=== PATIENT | female | born 1955 | race Caucasian/White ===

== ENCOUNTER → 2016-06-12 | Outpatient (CLI) | payer BC ==
[~2016-06-12] MED LIST: ADVIL MIGRAINE200 MG PO; DOXYCYCLINE 10100 MG PO; MUCINEX DM 30 M1 TE1 PO
== END ==
LOC: COL.VAS 12:21
DX: Z09 Encounter for follow-up examination after completed treatment for conditions other than malignant neoplasm (principal)

== ENCOUNTER → 2017-06-16 | Outpatient (CLI) | payer BC | LOC: MC.RAD 14:19 | DX: Z12.31 Encounter for screening mammogram for malignant neoplasm of breast (principal) ==

== ENCOUNTER → 2019-08-02 | Outpatient (CLI) | payer OTHER | LOC: MC.RAD 03-21 09:30 | DX: Z12.31 Encounter for screening mammogram for malignant neoplasm of breast (principal) ==